=== PATIENT | male | born 1995 | race African-American/Black ===

== ENCOUNTER 2017-10-30 07:04 | Emergency (ER) | payer MEDICAID ==
[~2017-10-30] VITALS: Ht 165.1 cm; Wt 49.0 kg
[2017-10-30] MEDS ORDERED: KETOROLAC 30MG/ML VIAL IV STA (07:48)
[2017-10-30] MEDS ORDERED: SODIUM CHLORIDE 0.9% 1,000 ML IV ONE (07:48)
[2017-10-30] MEDS ORDERED: TETANUS, DIPHTHERIA, PERTUSSIS VAC/PF 0.5ML (>7YR OLD) IM ONE (08:00)
[2017-10-30 12:12] VITALS: BP 127/71
== END 2017-10-30 12:13 | disposition home or self-care (01) ==
LOC: ER 07:04
DX: S80.02XA Contusion of left knee, initial encounter (principal); F10.129 Alcohol abuse with intoxication, unspecified; F12.10 Cannabis abuse, uncomplicated; F17.200 Nicotine dependence, unspecified, uncomplicated; V19.9XXA Pedal cyclist (driver) (passenger) injured in unspecified traffic accident, initial encounter; Y93.89 Activity, other specified; Y92.9 Unspecified place or not applicable
CPT/HCPCS: 70450; 71045; 72125; 72170; 73552; 73562; 73590; 90471; 90715; 96374; 99284; J1885; J7030; L1830

== ENCOUNTER 2020-04-20 12:21 | Emergency (ER) | payer MEDICAID ==
[~2020-04-20] VITALS: Ht 170.2 cm; Wt 59.0 kg
[2020-04-20] MEDS ORDERED: SODIUM CHLORIDE 0.9% 1,000 ML IV ONE (13:00)
[2020-04-20] MEDS ORDERED: ONDANSETRON HCL 4MG/2ML INJ IV ONE (13:00)
[2020-04-20 13:11] VITALS: BP 124/72
[2020-04-20 13:25] LABS: BASOPHILS % 0.7 % (0.0-2.0); EOSINOPHILS % 0.2 % (0.0-5.0); HEMATOCRIT. 41.4 % (42.0-52.0); HEMOGLOBIN. 13.7 g/dL (14.0-18.0); LYMPHOCYTES % 19.8 % (20.0-50.0); MEAN CORPUSCULAR HEMOGLOBIN 28.8 pg (28.0-32.0); MEAN CORPUSCULAR VOLUME 87.1 fL (80.0-94.0); MONOCYTES % 6.4 % (2.0-8.0); NEUTROPHILS % 72.9 % (40.0-76.0); PLATELET 327 x1000/uL (130-400); RED BLOOD CELL COUNT 4.76 mill/uL (4.7-6.1); RED CELL DISTRIBUTION WIDTH 15.1 % (11.6-14.6)
[2020-04-20 13:40] LABS: CHLORIDE 105 mEq/L (98-107)
[2020-04-20 13:43] LABS: ETHANOL BLOOD 31 mg/dL
[2020-04-20 14:34] LABS: CLARITY URINE CLOUDY (CLEAR); COLOR URINE YELLOW (YELLOW); KETONES URINE NEGATIVE (NEGATIVE); LEUKOCYTE ESTERASE URINE NEGATIVE (NEGATIVE); NITRITE URINE NEGATIVE (NEGATIVE); OCCULT BLOOD URINE NEGATIVE (NEGATIVE); PROTEIN URINE NEGATIVE (NEGATIVE); SPECIFIC GRAVITY URINE 1.009 (1.005-1.030); UROBILINOGEN URINE 0.2 E.U./dL (0.2-1.0)
[2020-04-20 15:46] LABS: *BENZODIAZEPINES SCREEN URINE NEGATIVE (NEGATIVE); *COCAINE SCREEN URINE NEGATIVE (NEGATIVE)
[2020-04-20 15:47] LABS: CANNABINOID URINE SCREEN PRESUMTIVE POSITIVE (NEGATIVE); METHADONE URINE SCREEN NEGATIVE (NEGATIVE); OPIATES URINE SCREEN NEGATIVE (NEGATIVE); PHENCYCLIDINE URINE SCREEN NEGATIVE (NEGATIVE)
[2020-04-20 15:48] LABS: *AMPHETAMINES SCREEN URINE PRESUMTIVE POSITIVE (NEGATIVE); *BARBITURATES SCREEN URINE NEGATIVE (NEGATIVE)
== END 2020-04-20 15:54 | disposition left against medical advice (07) ==
LOC: ER 12:54
DX: T40.7X1A Poisoning by cannabis (derivatives), accidental (unintentional), initial encounter (principal); T43.621A Poisoning by amphetamines, accidental (unintentional), initial encounter; T51.0X1A Toxic effect of ethanol, accidental (unintentional), initial encounter; G92 Toxic encephalopathy; Z87.11 Personal history of peptic ulcer disease; Y92.018 Other place in single-family (private) house as the place of occurrence of the external cause
CPT/HCPCS: 36415; 70450; 80053; 80305; 80307; 80320; 80329; 81003; 85025; 93005; 96360; 99285; J7030; Z7610; G0480

== ENCOUNTER 2023-06-10 01:49 | Emergency (ER) | payer SELFPAY ==
[~2023-06-10] VITALS: Ht 175.3 cm; Wt 75.0 kg
[2023-06-10 01:56] VITALS: O2SAT 94
[2023-06-10] MEDS ORDERED: IBUPROFEN 600MG TABLET PO NR (04:45)
[2023-06-10] MEDS ORDERED: IBUP-2029 MT (04:54)
[2023-06-10] MEDS ORDERED: CEPH500C2 MT (04:54)
[2023-06-10] MEDS: IBUPROFEN 600MG TABLET PO NR (05:48)
[2023-06-10] MEDS: IBUPROFEN 600MG TABLET PO ONE (05:49)
[2023-06-10 06:35] VITALS: BP 126/71; PULSE 84; RESP 14; TEMP 98.2
== END 2023-06-10 06:48 | disposition home or self-care (01) ==
LOC: ER 02:14
DX: L03.116 Cellulitis of left lower limb (principal); F12.90 Cannabis use, unspecified, uncomplicated; F19.90 Other psychoactive substance use, unspecified, uncomplicated
CPT/HCPCS: 73630; 99283